=== PATIENT | male | born 1960 | race Caucasian/White ===

== ENCOUNTER 2019-09-04 06:54 | Day surgery (SDC) | payer OTHER ==
[2019-09-04] MEDS ORDERED: Propofol 200 MG/20 ML SDV IV ONE (06:55)
[2019-09-04] MEDS ORDERED: Lidocaine 1% PF 2 ML SDV INJECT ONE (06:55)
[2019-09-04] MEDS ORDERED: Sodium Chloride 0.9% 10 ML Syringe FLUSH PRN (07:15)
[2019-09-04] MEDS ORDERED: Lactated Ringers 1,000 ML IV SCH (07:15)
--- NOTE | 2019-09-04 09:19 | PCM.OPNOTE ---
- General Post-Op/Procedure Note Date of Surgery/Procedure: 09/04/19 Operative Procedure(s): c scope with biopsy Findings: transverse and descending colon polyp Pre Op Diagnosis: screening Post-Op Diagnosis: transverse and descending colon polyp Anesthesia Technique: MAC Primary Surgeon: Shane Madsen Anesthesia Provider: González Thakur Pathology: transverse and descending colon polyp Condition: Good Free Text/Narrative:: see dictation
--- NOTE | 2019-09-04 10:55 | OR ---
DATE OF OPERATION: 09/04/2019 SURGEON: Shane Madsen MD PROCEDURE PERFORMED: Colonoscopy with cold forceps biopsy. PREOPERATIVE DIAGNOSIS: Need for screening C-scope. POSTOPERATIVE DIAGNOSIS: Transverse colon polyp and descending colon polyp. INDICATIONS FOR PROCEDURE: This is a 59-year-old white male who presents for his initial screening colonoscopy. He was essentially without complaints. DESCRIPTION OF OPERATION: After an excellent IV sedation was administered, digital rectal exam was performed. No marked abnormality was noted. Flexible colonoscope was inserted and advanced to the cecum. Prep was excellent. The following findings were noted. Ascending colon, unremarkable. Transverse colon, small polypoid lesion, biopsied with cold biopsy forceps and sent for permanent. Descending colon, unremarkable except for a small 2 mm polyp, biopsied with cold biopsy forceps and sent for permanent. Sigmoid, unremarkable. Rectum and anus, unremarkable. The patient tolerated the procedure well, was taken to Recovery. Results will be sent to him by letter. /[id number] /LAURI
== END 2019-09-04 10:05 | disposition home or self-care (01) ==
LOC: FB.SDS 06:54
PROVIDERS: ATTEND Surgery
DX: Z12.11 Encounter for screening for malignant neoplasm of colon (principal); D12.4 Benign neoplasm of descending colon; K63.5 Polyp of colon; I10 Essential (primary) hypertension; Z79.899 Other long term (current) drug therapy
CPT/HCPCS: 45380; 88305; J2001; J2704; J7120

== ENCOUNTER 2025-04-21 06:49 | Day surgery (SDC) | payer MEDICARE, OTHER ==
[2025-04-21] MEDS ORDERED: Propofol 200 MG/20 ML SDV IV ONE (06:50)
[2025-04-21] MEDS ORDERED: Sodium Chloride 0.9% 10 ML Syringe FLUSH PRN (07:00)
[2025-04-21] MEDS: Lactated Ringers 1,000 ML IV SCH (07:42)
== END 2025-04-21 09:20 | disposition home or self-care (01) ==
LOC: FB.SDS 06:49
PROVIDERS: ATTEND Surgery
DX: Z12.11 Encounter for screening for malignant neoplasm of colon (principal); K62.1 Rectal polyp; K57.30 Diverticulosis of large intestine without perforation or abscess without bleeding; K62.89 Other specified diseases of anus and rectum; K64.4 Residual hemorrhoidal skin tags; K40.90 Unilateral inguinal hernia, without obstruction or gangrene, not specified as recurrent; I10 Essential (primary) hypertension; F17.290 Nicotine dependence, other tobacco product, uncomplicated; Z79.82 Long term (current) use of aspirin; Z79.899 Other long term (current) drug therapy; Z86.0101 Personal history of adenomatous and serrated colon polyps
CPT/HCPCS: 00811; 45384; 88305; A9270; J2003; J2704; J7120